=== PATIENT | female | born 1960 | race Caucasian/White ===

== ENCOUNTER 2024-12-31 23:08 | Emergency (ER) | payer OTHER ==
[~2024-12-31] VITALS: Ht 167.6 cm; Wt 68.0 kg
[2024-12-31] MEDS ORDERED: CALCIUM CHLOR(10%) 100MG/ML 10ML SYRINGE IV ONE (23:09)
[2024-12-31] MEDS ORDERED: DEXTROSE 50% SYRINGE 50 ML IV ONE (23:22)
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
[2024-12-31 23:27] VITALS: BP 0/0; PULSE 0; RESP 0; TEMP 89.7; O2SAT 0
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
== END 2024-12-31 23:25 ==
LOC: EDBD 23:08 → ER 23:08
DX: I46.9 Cardiac arrest, cause unspecified (principal); I49.01 Ventricular fibrillation
CPT/HCPCS: 31500; 92950; 99285; J0169; J3475; J7042